=== PATIENT | female | born 1980 | race Caucasian/White ===

== ENCOUNTER 2024-04-16 07:09 | Outpatient (CLI) | payer BC, SELFPAY | END 2024-04-16 07:10 | disposition home or self-care (01) | PROVIDERS: Visit Provider Obstetrics & Gynecology Reproductive Endocrinology | DX: Z31.83 Encounter for assisted reproductive fertility procedure cycle (principal); N83.02 Follicular cyst of left ovary; N83.01 Follicular cyst of right ovary | CPT/HCPCS: 76830; 76856 ==